=== PATIENT | female | born 1950 | race Caucasian/White ===

== ENCOUNTER 2017-02-22 10:04 | Day surgery (SDC) | payer MEDICARE ==
[2017-02-22] MEDS ORDERED: Propofol 200 MG/20 ML SDV ONE (10:35)
[2017-02-22] MEDS ORDERED: fentaNYL 100 MCG/2 ML SDV ONE (10:35)
[2017-02-22] MEDS ORDERED: Midazolam 1 MG/ML 2 ML SDV ONE (10:35)
[2017-02-22] MEDS ORDERED: Lactated Ringers 1,000 ML IV SCH (10:45)
[2017-02-22 14:09] VITALS: BP 127/87
--- NOTE | 2017-02-23 07:28 | OR ---
DATE OF PROCEDURE: 02/22/2017 PREOPERATIVE DIAGNOSIS: Colon cancer screening. POSTOPERATIVE DIAGNOSIS: Right colon polyp. PROCEDURE PERFORMED: Colonoscopy to the cecum with biopsy and then snare cautery polypectomy of a right colon polyp. SURGEON: Jerry Tate MD ANESTHESIA: IV anesthesia with monitored anesthesia care. INDICATION: This 66-year-old white female is referred for a screening colonoscopy. I counseled her for the procedure including risks and alternatives, and she gave her informed consent to proceed. DESCRIPTION OF PROCEDURE: The patient was placed in the left lateral decubitus position. IV anesthesia was administered by the Anesthesia Service. Time-out was held. A rectal exam was performed, which was unremarkable. The flexible video Olympus colonoscope was introduced through her anus, up her rectum, and out her colon all way to the cecum. To accomplish this, we had to place the patient supine with some abdominal compression. Once the cecum was reached, the scope was slowly withdrawn examining the mucosa throughout. In the right colon we saw a pedunculated polyp which was initially biopsied. It was too large to remove using this technique. A snare was passed about its base, it was elevated away from the bowel wall, and it was amputated as electrocautery was applied. The polyp was aspirated through the scope and captured in a polyp trap. The scope was withdrawn further with no other lesions noted. The scope was retroflexed in rectum with the distal rectum appearing unremarkable. The scope was straightened and removed. She tolerated the procedure well. Jerry Tate MD /[id number] [facility]
== END 2017-02-22 14:20 | disposition home or self-care (01) ==
LOC: JP.SDS 10:04
PROVIDERS: ATTEND Surgery
PROC: 0DBF8ZZ Excision of Right Large Intestine, Via Natural or Artificial Opening Endoscopic (ICD-10-PCS; principal; 2017-02-22)
PROC: 0DBH8ZZ Excision of Cecum, Via Natural or Artificial Opening Endoscopic (ICD-10-PCS; 2017-02-22)
DX: Z12.11 Encounter for screening for malignant neoplasm of colon (principal); D12.0 Benign neoplasm of cecum; D12.2 Benign neoplasm of ascending colon
CPT/HCPCS: 45385; J2250; J2704; J3010; J7120; 88305

== ENCOUNTER 2020-04-09 07:02 | Day surgery (SDC) | payer MEDICARE ==
[2020-04-09] MEDS ORDERED: Sodium Chloride 0.9% 1,000 ML IV SCH (07:30)
[2020-04-09] MEDS ORDERED: Propofol 200 MG/20 ML SDV ONE (07:43)
[2020-04-09] MEDS ORDERED: fentaNYL 100 MCG/2 ML SDV ONE (07:43)
[2020-04-09] MEDS ORDERED: Midazolam 1 MG/ML 2 ML SDV ONE (07:43)
[2020-04-09 10:53] VITALS: BP 142/73; PULSE 73
--- NOTE | 2020-04-09 11:37 | OR ---
DATE OF PROCEDURE: 04/09/2020 SURGEON: Carmelo Sloan MD PROCEDURE: Colonoscopy. FINDINGS: 1. Transverse colon polyp, approximately 5 mm, completely removed using hot snare wire device. 2. Descending colon polyp, completely removed using cold biopsy forceps. COMPLICATIONS: None. TRACK REPAIR SUPERVISOR: None. ANESTHESIA: MAC. PREOPERATIVE DIAGNOSIS: History of colon polyps. POSTOPERATIVE DIAGNOSIS: History of colon polyps. RISKS: Risks, benefits, alternatives, and limitations including, but not limited to infection, bleeding, and perforation were explained to the patient, who wished to proceed. PROCEDURE IN DETAIL: The patient was placed in a left lateral decubitus position. Digital rectal exam was performed without abnormality. Scope was introduced and advanced atraumatically to the ileocecal valve. Scope was brought back through the ascending, transverse, descending colon, and retroflexed. No evidence of old or new blood. The aforementioned polyps were identified and completely removed with the mechanism described above. No other abnormalities. The patient tolerated the procedure well. No diverticulosis. No evidence of colitis. No old or new blood. Carmelo Sloan MD /[id number]
== END 2020-04-09 11:00 | disposition home or self-care (01) ==
LOC: JP.SDS 07:02
PROVIDERS: ATTEND Surgery
DX: Z12.11 Encounter for screening for malignant neoplasm of colon (principal); D12.3 Benign neoplasm of transverse colon; I10 Essential (primary) hypertension; G20 Parkinson's disease; Z86.010 Personal history of colon polyps; Z98.890 Other specified postprocedural states
CPT/HCPCS: 45380; 45385; J2250; J2704; J3010; J7030; 88305